=== PATIENT | male | born 1950 | race Caucasian/White ===

== ENCOUNTER 2017-11-07 06:08 | Day surgery (SDC) | payer MEDICARE, BC ==
[2017-11-07] MEDS ORDERED: CEFAZOLIN 1 GM INJ (07:00)
[2017-11-07] MEDS ORDERED: MIDAZOLAM 1 MG/ML 2 ML INJ (07:58)
[2017-11-07] MEDS ORDERED: LIDOCAINE 2% (SDV) 5 ML INJ (07:58)
[2017-11-07] MEDS ORDERED: PROPOFOL 20 ML (07:58)
[2017-11-07] MEDS ORDERED: ONDANSETRON 4 MG INJ (08:30)
[2017-11-07] MEDS ORDERED: METOCLOPRAMIDE 10 MG INJ (08:30)
[2017-11-07] MEDS ORDERED: DEXAMETHASONE 4 MG/ML 1 ML INJ (08:30)
[2017-11-07] MEDS: LIDOCAINE 1% (MPF) 30 ML INJ (08:46)
[2017-11-07] MEDS: POLYMYXIN/BACITRACIN 1L IRRIG (08:46)
[2017-11-07] MEDS: BUPIVACAINE 0.25%/EPI (SDV) 30 ML INJ (08:47)
[2017-11-07] MEDS ORDERED: FENTAnyl 50 MCG/ML VIAL IV (09:00)
[2017-11-07] MEDS ORDERED: ONDANSETRON 4 MG INJ IV (10:00)
[2017-11-07] MEDS ORDERED: morphine 2 MG INJ IM (10:00)
[2017-11-07] MEDS ORDERED: HYDROCODONE/APAP (5/325) TAB PO ×2 (10:00)
[2017-11-07] MEDS: KETOROLAC 30 MG INJ IV (10:39)
[2017-11-07] MEDS: FENTAnyl 50 MCG/ML VIAL IV (10:54)
[2017-11-14] MEDS ORDERED: CEFAZOLIN 2 GM/50 ML (PMX) 50 ML IVPB (06:00)
== END 2017-11-07 12:30 | disposition home or self-care (01) ==
LOC: SDS 06:08
DX: K40.90 Unilateral inguinal hernia, without obstruction or gangrene, not specified as recurrent (principal)
CPT/HCPCS: 49505; 88302

== ENCOUNTER 2017-11-10 22:59 | Emergency (ER) | payer MEDICARE, OTHER ==
[2017-11-11] MEDS: morphine 4 MG/ML VIAL IV (00:22)
[2017-11-11] MEDS: ONDANSETRON 4 MG INJ IV (00:23)
[2017-11-11] MEDS: SOD CHLORIDE 0.9% 500 ML IV (00:23)
[2017-11-11 00:29] LABS: ADD MAN DIFF? NO
[2017-11-11 00:31] LABS: BASOPHIL # 0.1 10^3/ul (0.0-0.1); BASOPHILS % 0.9 % (0.0-2.0); EOSINOPHILS # 0.3 10^3/ul (0.0-0.5); EOSINOPHILS % 3.9 % (0.0-7.0); HEMATOCRIT 40.8 % (42.0-52.0); HEMOGLOBIN 13.9 g/dl (14.0-18.0); LYMPHOCYTES # 2.3 10^3/ul (0.8-2.9); LYMPHOCYTES % 31.4 % (15.0-51.0); MEAN CORPUSCULAR HEMOGLOBIN 31.6 pg (29.0-33.0); MEAN CORPUSCULAR HGB CONC 34.1 g/dl (32.0-37.0); MEAN CORPUSCULAR VOLUME 92.7 fl (82.0-101.0); MEAN PLATELET VOLUME 9.8 fl (7.4-10.4); MONOCYTE # 0.6 10^3/ul (0.3-0.9); MONOCYTES % 7.4 % (0.0-11.0); NEUTROPHIL # 4.2 10^3/ul (1.6-7.5); NEUTROPHILS % 56.1 % (39.0-77.0); PLATELET COUNT 204 10^3/UL (140-415); RED CELL DISTRIBUTION WIDTH 12.5 % (11.5-14.5)
[2017-11-11 00:31] LABS: WHITE BLOOD COUNT 7.4 10^3/ul (4.8-10.8)
[2017-11-11 00:35] LABS: ADD UMIC NO; UR ASCORBIC ACID NEGATIVE (NEGATIVE); UR BILIRUBIN (Dip) NEGATIVE (NEGATIVE); UR BLOOD (Dip) NEGATIVE (NEGATIVE); UR CLARITY CLEAR (CLEAR); UR COLOR YELLOW (YELLOW); UR GLUCOSE (Dip) NEGATIVE (NEGATIVE); UR KETONES (Dip) NEGATIVE (NEGATIVE); UR LEUKOCYTE ESTERASE (Dip) NEGATIVE Leu/ul (NEGATIVE); UR NITRITE (Dip) NEGATIVE (NEGATIVE); UR SPECIFIC GRAVITY (Dip) 1.011 (1.003-1.030); UR TOTAL PROTEIN (Dip) NEGATIVE (NEGATIVE); UR UROBILINOGEN (Dip) NEGATIVE (NEGATIVE)
[2017-11-11 00:49] LABS: ALANINE AMINOTRANSFERASE 22 IU/L (13-69); ALBUMIN 4.6 g/dl (3.3-4.9); ALKALINE PHOSPHATASE 57 IU/L (42-121); ANION GAP 16 (8-16); ASPARTATE AMINO TRANSFERASE 25 IU/L (15-46); BILIRUBIN,INDIRECT 0.5 mg/dl (0-1.1); BILIRUBIN,TOTAL 0.5 mg/dl (0.2-1.3); BLOOD UREA NITROGEN 19 mg/dl (7-20); CALCIUM 9.5 mg/dl (8.4-10.2); CARBON DIOXIDE 30 mmol/L (21-31); CHLORIDE 97 mmol/L (97-110); CREATININE 0.91 mg/dl (0.61-1.24); GLUCOSE 96 mg/dl (70-220); LIPASE 37 U/L (23-300); POTASSIUM 4.1 mmol/L (3.5-5.1); SODIUM 139 mmol/L (135-144); TOTAL PROTEIN 6.9 g/dl (6.1-8.1)
[2017-11-11 01:06] LABS: INR 0.93; PROTIME 12.6 Sec (11.9-14.9)
[2017-11-11 01:07] LABS: PARTIAL THROMBOPLASTIN TIME 28.4 Sec (25.0-35.0)
== END 2017-11-11 03:25 | disposition home or self-care (01) ==
LOC: E/R 22:59
DX: K91.873 Postprocedural seroma of a digestive system organ or structure following other procedure (principal); R10.9 Unspecified abdominal pain
CPT/HCPCS: 36415; 74176; 80053; 81003; 83690; 85025; 85610; 85730; 99285-25